=== PATIENT | female | born 1970 | race Caucasian/White ===

== ENCOUNTER → 2017-10-30 | Outpatient (CLI) | payer BC, OTHER | LOC: FIMAGING 09:22 | PROVIDERS: ATTEND Obstetrics & Gynecology | DX: Z12.31 Encounter for screening mammogram for malignant neoplasm of breast (principal); Z83.0 Family history of human immunodeficiency virus [HIV] disease ==

== ENCOUNTER → 2018-11-07 | Outpatient (CLI) | payer BC | LOC: FIMAGING 09:14 | PROVIDERS: ATTEND Obstetrics & Gynecology | DX: Z12.31 Encounter for screening mammogram for malignant neoplasm of breast (principal) ==